=== PATIENT | male | born 1955 | race Two or more races ===

== ENCOUNTER 2020-01-06 13:00 | Outpatient (CLI) | payer MEDICARE ==
[2020-01-06 14:10] LABS: BASOPHILS % (AUTO) 0.4 % (0.0-2.0); EOSINOPHILS % (AUTO) 0.5 % (0.0-6.0); HEMATOCRIT 30 % (39-51); HEMOGLOBIN 9.5 g/dL (13.5-17.5); LYMPHOCYTES # (AUTO) 1.2 /CMM (0.8-4.8); LYMPHOCYTES % (AUTO) 27.7 % (20.0-44.0); MEAN CORPUSCULAR HGB CONC 32 g/dl (31.0-36.0); MEAN CORPUSCULAR VOLUME 89 fL (80-96); MONOCYTES # (AUTO) 0.2 /CMM (0.1-1.30); MONOCYTES % (AUTO) 3.7 % (2.0-12.0); NEUTROPHILS # (AUTO) 2.9 /CMM (1.8-8.9); NEUTROPHILS % (AUTO) 67.7 % (43.0-81.0); PLATELET COUNT (AUTO) 177 /CMM (150-450); RED BLOOD CELL COUNT(AUTO) 3.38 MIL/uL (4.5-6.0); WHITE BLOOD COUNT (AUTO) 4.2 K/uL (4.3-11.0)
[2020-01-06 14:20] LABS: CALCIUM, SERUM 8.6 mg/dL (8.5-10.1); POTASSIUM 5.9 mmol/L (3.5-5.1)
[2020-01-06 14:21] LABS: ALBUMIN 4.1 g/dL (3.4-5.0); BILIRUBIN,TOTAL 0.2 mg/dL (0.2-1.0); TOTAL PROTEIN, SERUM 8.3 g/dL (6.4-8.2)
[2020-01-06 14:31] LABS: PROSTATE SPECIFIC ANTIGEN SCR 0.61 ng/mL (0.00-4.00)
[2020-01-09 11:17] LABS: APPEARANCE,URINE CLEAR (CLEAR); BILIRUBIN,URINE NEGATIVE (NEGATIVE); BLOOD, URINE SMALL Ery/uL (NEGATIVE); COLOR,URINE YELLOW (YELLOW); KETONES,URINE NEGATIVE (NEGATIVE); LEUKOCYTE ESTERASE ,URINE TRACE (NEGATIVE); NITRITE, URINE NEGATIVE (NEGATIVE); PH,URINE 5.5 (5.0-8.0); PROTEIN,URINE 100 mg/dl (NEGATIVE); UGLUCOSE NEGATIVE (NEGATIVE); UROBILINOGEN,URINE 0.2 EU/dL (0.2)
[2020-01-09 11:31] LABS: CREATININE, URINE 111.7 MG/DL (30.0-125.0); URINE TOTAL PROTEIN 126.6 mg/dL (0-11.9)
[2020-01-09 12:42] LABS: BACTERIA,URINE Few /HPF (None Seen); SQUAMOUS EPITHELIAL CELL,UR Rare /HPF (None Seen)
== END 2020-01-06 23:59 | disposition home or self-care (01) ==
LOC: MSC 13:00
PROVIDERS: ATTEND Internal Medicine
DX: M54.5 Low back pain (principal); I10 Essential (primary) hypertension; E11.9 Type 2 diabetes mellitus without complications; Z79.4 Long term (current) use of insulin; N40.0 Benign prostatic hyperplasia without lower urinary tract symptoms; K21.9 Gastro-esophageal reflux disease without esophagitis
CPT/HCPCS: 36415; 80053; 80061; 81001; 82570; 82607; 82746; 83036; 84153; 85025; 87086; G0463; 81000-TC; 84155-TC

== ENCOUNTER 2020-01-17 11:46 | Outpatient (CLI) | payer MEDICARE ==
[2020-01-17 13:03] LABS: ALBUMIN 4.1 g/dL (3.4-5.0); BILIRUBIN,TOTAL 0.4 mg/dL (0.2-1.0); CALCIUM, SERUM 9.1 mg/dL (8.5-10.1); CREATININE 1.9 mg/dL (0.6-1.3); TOTAL PROTEIN, SERUM 8.3 g/dL (6.4-8.2)
[2020-01-17 13:06] LABS: POTASSIUM 7.3 mmol/L (3.5-5.1)
== END 2020-01-17 23:59 | disposition home or self-care (01) ==
LOC: LAB 11:46
PROVIDERS: ATTEND Internal Medicine
DX: N17.9 Acute kidney failure, unspecified (principal)
CPT/HCPCS: 36415; 80053-TC

== ENCOUNTER 2020-01-27 14:28 | Outpatient (CLI) | payer MEDICARE ==
[2020-01-27 15:54] LABS: ALBUMIN 4.3 g/dL (3.4-5.0); BILIRUBIN,TOTAL 0.2 mg/dL (0.2-1.0); CALCIUM, SERUM 8.7 mg/dL (8.5-10.1); CREATININE 1.9 mg/dL (0.6-1.3); MAGNESIUM 1.3 mg/dL (1.8-2.4); PHOSPHORUS 3.4 mg/dL (2.5-4.9); TOTAL PROTEIN, SERUM 8.1 g/dL (6.4-8.2)
[2020-01-27 16:57] LABS: POTASSIUM 6.8 mmol/L (3.5-5.1)
== END 2020-01-27 23:59 | disposition home or self-care (01) ==
LOC: MSC 14:28
PROVIDERS: ATTEND Internal Medicine
DX: M54.5 Low back pain (principal); E11.22 Type 2 diabetes mellitus with diabetic chronic kidney disease; I12.9 Hypertensive chronic kidney disease with stage 1 through stage 4 chronic kidney disease, or unspecified chronic kidney disease; N18.9 Chronic kidney disease, unspecified; Z79.4 Long term (current) use of insulin; E87.5 Hyperkalemia; I73.9 Peripheral vascular disease, unspecified; N40.0 Benign prostatic hyperplasia without lower urinary tract symptoms; K21.9 Gastro-esophageal reflux disease without esophagitis
CPT/HCPCS: 36415; 80053; 83735; 84100; G0463

== ENCOUNTER 2020-02-01 09:19 | Outpatient (CLI) | payer MEDICARE ==
[2020-02-01 10:55] LABS: BILIRUBIN,TOTAL 0.2 mg/dL (0.2-1.0); CALCIUM, SERUM 8.4 mg/dL (8.5-10.1); CREATININE 1.6 mg/dL (0.6-1.3); TOTAL PROTEIN, SERUM 7.8 g/dL (6.4-8.2)
== END 2020-02-01 23:59 | disposition home or self-care (01) ==
LOC: MSC 09:19
PROVIDERS: ATTEND Internal Medicine
DX: E87.5 Hyperkalemia (principal); E11.22 Type 2 diabetes mellitus with diabetic chronic kidney disease; I12.9 Hypertensive chronic kidney disease with stage 1 through stage 4 chronic kidney disease, or unspecified chronic kidney disease; N18.9 Chronic kidney disease, unspecified; Z79.4 Long term (current) use of insulin; M54.5 Low back pain; N40.0 Benign prostatic hyperplasia without lower urinary tract symptoms; I73.9 Peripheral vascular disease, unspecified; K21.9 Gastro-esophageal reflux disease without esophagitis
CPT/HCPCS: 36415; 80053; G0463

== ENCOUNTER 2020-02-16 10:30 | Outpatient (CLI) | payer MEDICARE ==
[2020-02-16 11:47] LABS: BASOPHILS % (AUTO) 0.8 % (0.0-2.0); EOSINOPHILS % (AUTO) 0.3 % (0.0-6.0); HEMATOCRIT 32 % (39-51); LYMPHOCYTES # (AUTO) 1.2 /CMM (0.8-4.8); LYMPHOCYTES % (AUTO) 35.8 % (20.0-44.0); MEAN CORPUSCULAR HGB CONC 32 g/dl (31.0-36.0); MEAN CORPUSCULAR VOLUME 90 fL (80-96); MONOCYTES # (AUTO) 0.2 /CMM (0.1-1.30); MONOCYTES % (AUTO) 5.8 % (2.0-12.0); NEUTROPHILS # (AUTO) 1.9 /CMM (1.8-8.9); NEUTROPHILS % (AUTO) 57.3 % (43.0-81.0); PLATELET COUNT (AUTO) 149 /CMM (150-450); WHITE BLOOD COUNT (AUTO) 3.2 K/uL (4.3-11.0)
[2020-02-16 12:01] LABS: BILIRUBIN,TOTAL 0.2 mg/dL (0.2-1.0); CALCIUM, SERUM 8.4 mg/dL (8.5-10.1); CREATININE 1.6 mg/dL (0.6-1.3); MAGNESIUM 1.6 mg/dL (1.8-2.4); PHOSPHORUS 2.8 mg/dL (2.5-4.9); TOTAL PROTEIN, SERUM 8.2 g/dL (6.4-8.2)
== END 2020-02-16 23:59 | disposition home or self-care (01) ==
LOC: MSC 10:30
PROVIDERS: ATTEND Internal Medicine
DX: E87.5 Hyperkalemia (principal); I73.9 Peripheral vascular disease, unspecified; E11.22 Type 2 diabetes mellitus with diabetic chronic kidney disease; I12.9 Hypertensive chronic kidney disease with stage 1 through stage 4 chronic kidney disease, or unspecified chronic kidney disease; N18.9 Chronic kidney disease, unspecified; Z87.891 Personal history of nicotine dependence; Z79.4 Long term (current) use of insulin; K21.9 Gastro-esophageal reflux disease without esophagitis; M54.5 Low back pain; N40.0 Benign prostatic hyperplasia without lower urinary tract symptoms; R53.81 Other malaise; R56.9 Unspecified convulsions; Z79.899 Other long term (current) drug therapy
CPT/HCPCS: 36415; 80053; 83036; 83735; 84100; 85025; G0463

== ENCOUNTER 2020-03-01 09:52 | Outpatient (CLI) | payer MEDICARE | END 2020-03-01 23:59 | disposition home or self-care (01) | LOC: MSC 09:52 | PROVIDERS: ATTEND Internal Medicine | DX: E11.22 Type 2 diabetes mellitus with diabetic chronic kidney disease (principal); N18.9 Chronic kidney disease, unspecified; I10 Essential (primary) hypertension; Z79.4 Long term (current) use of insulin; Z79.84 Long term (current) use of oral hypoglycemic drugs; I73.9 Peripheral vascular disease, unspecified; M54.5 Low back pain; N40.0 Benign prostatic hyperplasia without lower urinary tract symptoms; K21.9 Gastro-esophageal reflux disease without esophagitis; R53.81 Other malaise; Z79.899 Other long term (current) drug therapy ==

== ENCOUNTER 2020-04-12 09:51 | Outpatient (CLI) | payer MEDICARE | END 2020-04-12 23:59 | disposition home or self-care (01) | LOC: MSC 09:51 | PROVIDERS: ATTEND Internal Medicine | DX: E11.22 Type 2 diabetes mellitus with diabetic chronic kidney disease (principal); N18.9 Chronic kidney disease, unspecified; I10 Essential (primary) hypertension; Z79.4 Long term (current) use of insulin; I73.9 Peripheral vascular disease, unspecified; E87.5 Hyperkalemia; M54.5 Low back pain; N40.0 Benign prostatic hyperplasia without lower urinary tract symptoms; K21.9 Gastro-esophageal reflux disease without esophagitis; R53.81 Other malaise; R56.9 Unspecified convulsions; Z79.899 Other long term (current) drug therapy; Z87.891 Personal history of nicotine dependence ==

== ENCOUNTER 2020-05-10 11:05 | Outpatient (CLI) | payer MEDICARE | END 2020-05-10 23:59 | disposition home or self-care (01) | LOC: MSC 11:05 | PROVIDERS: ATTEND Internal Medicine | DX: E11.22 Type 2 diabetes mellitus with diabetic chronic kidney disease (principal); I12.9 Hypertensive chronic kidney disease with stage 1 through stage 4 chronic kidney disease, or unspecified chronic kidney disease; N18.9 Chronic kidney disease, unspecified; Z79.4 Long term (current) use of insulin; E87.5 Hyperkalemia; M54.5 Low back pain; N40.0 Benign prostatic hyperplasia without lower urinary tract symptoms; K21.9 Gastro-esophageal reflux disease without esophagitis; I73.9 Peripheral vascular disease, unspecified; R53.81 Other malaise; R56.9 Unspecified convulsions; Z79.899 Other long term (current) drug therapy ==